=== PATIENT | male | born 1980 | race Caucasian/White ===

== ENCOUNTER 2016-06-05 21:04 | Emergency (ER) | payer SELFPAY ==
[~2016-06-05] VITALS: Ht 185.4 cm; Wt 100.0 kg
[2016-06-05 21:05] VITALS: BP 131/79; PULSE 75; RESP 18; TEMP 97.8; O2SAT 96
--- NOTE | 2016-06-05 21:35 | PD ---
HPI Chief Complaint: Injury Time Seen by Provider: 21:32 Travel History International Travel<30 days: No Contact w/Intl Traveler<30days: No Traveled to known affect area: No History of Present Illness HPI Patient comes in for evaluation of right shoulder pain that began at 1630 today. Patient states he was running track trying to catch up with a group of friends when he tripped over a tree root landing on his right shoulder causing pain. It is a throbbing like in nature with palpation or movement of his right shoulder. Pain improves with not moving his right shoulder. He states he took some ibuprofen prior coming to the emergency department with minimal relief of symptoms. Denies hitting his head, loss consciousness, numbness or tingling anywhere, neck pain, or shortness of breath. Denies any radiation of pain. [facility] Past Medical History Medical History: Denies Significant Hx Social History Alcohol Use: Yes Tobacco Use: No Substance Use: No Allergies-Medications (Allergen,Severity, Reaction): Coded Allergies: Amoxicillin (Verified Allergy, Unknown, 06/05/16) Penicillin (Verified Allergy, Unknown, 06/05/16) Shellfish (Verified Allergy, Unknown, 06/05/16) Reported Meds & Prescriptions Reported Meds & Active Scripts Active Naprosyn (Naproxen) 500 Mg Tab 500 Mg PO Q12HR PRN Flexeril (Cyclobenzaprine HCl) 10 Mg Tab 10 Mg PO Q8HR PRN Review of Systems Except as stated in HPI: all other systems reviewed are Neg Physical Exam Narrative GENERAL: Well-developed, overly nourished, in no acute distress, and non-ill appearing. SKIN: Warm and dry. HEAD: Atraumatic. Normocephalic. EYES: Pupils equal and round. EOMI. No scleral icterus. No injection or drainage. ENT: No nasal bleeding or discharge. Mucous membranes pink and moist. NECK: Trachea midline. Supple. No nuclear rigidity. CARDIOVASCULAR: Radial pulses 2+, tach, and equal bilaterally. Capillary refill less than 2 seconds. RESPIRATORY: No accessory muscle use. No respiratory distress. MUSCULOSKELETAL: No obvious deformities. No clubbing. No cyanosis. No edema. Decreased range of motion right shoulder secondary to pain. Shoulder:FROM equal BL with passive flexion, extension, Abduction, Adduction, internal/external rotation, and pronation/supination. Sensation equal BL deltoid muscles. Pulses equal BL distal to injury. Capillary refill less than 2 seconds distal to injury and equal BL. FROM distal to injury and equal BL. Strength distal to injury equal BL. NV intact distal to injury equal BL. Flexion and extension of thumb equal BL. Equal strength and movement with abduction/adductions of BL fingers. 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 Patient reports tenderness palpation over right anterior shoulder. NEUROLOGICAL: Awake and alert. No obvious cranial nerve deficits. Motor grossly within normal limits. Normal speech. PSYCHIATRIC: Appropriate mood and affect; insight and judgment normal. Data Data Last Documented VS Vital Signs Date Time Temp Pulse Resp B/P Pulse Ox O2 Delivery O2 Flow Rate FiO2 06/05/16 21:05 97.8 75 18 131/79 96 Room Air Orders Shoulder, Complete (>2vws) (06/05/16 ) Ice/Cold Pack (06/05/16 21:30) Splint Or Brace Apply/Monitor (06/05/16 21:30) Cyclobenzaprine (Flexeril) (06/05/16 21:45) Sling Cradle Arm (06/05/16 ) MDM Medical Decision Making Medical Screen Exam Complete: Yes Emergency Medical Condition: Yes Differential Diagnosis Fracture, sprain, contusion, dislocation, other Narrative Course The patient appears to have suffered a contusion of the extremity. There is no clinical evidence to suspect bony injury by exam. Radiographic examination revealed no fracture seen at this time. The patient has full range of motion on active and passive motions. There is no significant edema. There is no proximal or distal joint effusion. The distal extremity appears neurovascularly intact, without evidence of neurovascular injury nor compartment syndrome. Tendon exam also was intact. The patient was discharged on pain medication instructions and given warnings for vascular compromise. The patient is to follow up with their regular physician or Orthopedics. The patient agrees with plan. Patient in no obvious distress upon re-evaluation. All pertinent Radiology result(s) discussed with patient/family. Patient was asked if they wanted to speak to my attending, which the patient did not wish to do at this time. Any questions/concerns in reference to patient diagnosis/condition discussed and clarified prior to patient's discharge. Reinforced sheer importance of close follow up with patient's primary physician or primary care clinic. Instructed patient to return to ED immediately, if symptoms return/worsen. Pt showed understanding of above instructions. Further instructions and recommendations were detailed in discharge paperwork. Pt ambulated without difficulty out of ED at discharge. Diagnosis Primary Impression: Contusion of right shoulder, initial encounter Referrals: Dawit Patel MD Patient Instructions: Contusion in Adults (ED), General Instructions, How to Use a Sling (GEN) Departure Forms: Work Release Enter return to work date: Jun 08, 2016 Additional Instructions: Follow-up with your primary care physician and/or the patient 3-5 days for reevaluation. Take all medication as prescribed. Return to the emergency department if symptoms get worse. Med/Other Pt SpecificInfo: Prescription(s) given Scripts Naproxen (Naprosyn)500 Mg [id number] Mg PO Q12HR PRN (PAIN SCALE 1 TO 10) #14 TAB Ref 0 Prov:Cr Caraballo MD 06/05/16 Cyclobenzaprine (Flexeril)10 Mg Tab10 Mg PO Q8HR PRN (MUSCLE PAIN) #15 TAB Ref 0 Prov:Cr Caraballo MD 06/05/16 Disposition: 01 DISCHARGE HOME Condition: Stable Krishan Cummins Jun 05, 2016 21:35
[2016-06-05] MEDS ORDERED: CYCLOBENZAPRINE HCL 10 MG TAB PO ONE (21:45)
--- NOTE | 2016-06-05 22:08 | RADRPT ---
EXAM DATE/TIME: 06/05/2016 21:47 [facility] COMPARISON: No previous studies available for comparison. INDICATIONS : Right shoulder pain. Patient tripped and landed on a tree stump. MEDICAL HISTORY : None. SURGICAL HISTORY : None. ENCOUNTER: Initial ACUITY: 1 day PAIN SCORE: 10/10 LOCATION: Right shoulder. FINDINGS: Multiple view examination of the right shoulder demonstrates no evidence of fracture or dislocation. The glenohumeral and acromioclavicular joints are maintained. There is normal range of motion betwe en internal and external rotation. Bony mineralization is normal. CONCLUSION: Normal examination for a patient of this age. Gino Canales MD on June 05, 2016 at 22:06 Board Certified Radiologist. This report was verified electronically.
[2016-06-05] MEDS ORDERED: CYCL1TAB29 PO (22:38)
[2016-06-05] MEDS ORDERED: NAPR500 PO (22:38)
== END 2016-06-05 22:47 | disposition home or self-care (01) ==
LOC: NEPB 21:04
DX: S40.011A Contusion of right shoulder, initial encounter (principal); W18.09XA Striking against other object with subsequent fall, initial encounter; Y93.02 Activity, running; Y92.39 Other specified sports and athletic area as the place of occurrence of the external cause; Y99.8 Other external cause status
CPT/HCPCS: 73030; 99283

== ENCOUNTER 2016-07-25 17:04 | Observation (INO) | payer BC ==
[~2016-07-25 17:04] MED LIST: CYCL1TAB29 PO; NAPR500 PO
[2016-07-25 17:05] VITALS: BP 156/87; PULSE 77; RESP 16; TEMP 98.2; O2SAT 100
--- NOTE | 2016-07-25 17:18 | PD ---
HPI Chief Complaint: Chest Pain Time Seen by Provider: 17:14 Travel History International Travel<30 days: No Contact w/Intl Traveler<30days: No Traveled to known affect area: No History of Present Illness HPI 36-year-old male came to the emergency room with history of chest pain on and off since yesterday. Patient says that the pain feels like a pressure in the middle of his chest and radiates down his left arm. No aggravating or relieving factors identified. Currently he says his pain is 4-5 out of 10. He' s never had this kind of pain in the past. Patient currently is not a smoker. He has past history of heavy cocaine abuse and other illicit drug abuse. Currently he is not doing any drugs. Vital signs were otherwise stable. No known family history of coronary artery disease. No other associated symptoms like syncope, nausea, diaphoresis PFSH Past Medical History Narrative Medical List of his past medical, surgical, social and family history as reviewed from the nursing note. Medical History: Denies Significant Hx Past Surgical History Surgical History: No Previous Surgery Social History Alcohol Use: Yes Tobacco Use: No Substance Use: No Allergies-Medications (Allergen,Severity, Reaction): Coded Allergies: Amoxicillin (Verified Allergy, Unknown, 06/05/16) Penicillin (Verified Allergy, Unknown, 06/05/16) Shellfish (Verified Allergy, Unknown, 06/05/16) Comments List of his allergies reviewed from the nursing note. Reported Meds & Prescriptions Reported Meds & Active Scripts Active Narrative Medication List of his home medications reviewed from the nursing note. Review of Systems Except as stated in HPI: all other systems reviewed are Neg Physical Exam Narrative GENERAL: Awake, alert, anxious, mild distress SKIN: Focused skin assessment warm/dry. HEAD: Atraumatic. Normocephalic. EYES: Pupils equal and round. No scleral icterus. No injection or drainage. ENT: No nasal bleeding or discharge. Mucous membranes pink and moist. NECK: Trachea midline. No JVD. CARDIOVASCULAR: Regular rate and rhythm. No murmur appreciated. RESPIRATORY: No accessory muscle use. Clear to auscultation. Breath sounds equal bilaterally. GASTROINTESTINAL: Abdomen soft, non-tender, nondistended. Hepatic and splenic margins not palpable. MUSCULOSKELETAL: No obvious deformities. No clubbing. No cyanosis. No edema. NEUROLOGICAL: Awake and alert. No obvious cranial nerve deficits. Motor grossly within normal limits. Normal speech. PSYCHIATRIC: Appropriate mood and affect; insight and judgment normal. Data Data Last Documented VS Vital Signs Date Time Temp Pulse Resp B/P Pulse Ox O2 Delivery O2 Flow Rate FiO2 07/25/16 17:05 98.2 77 16 156/87 100 Orders Electrocardiogram (07/25/16 ) Basic Metabolic Panel (Bmp) (07/25/16 17:25) Ckmb (Isoenzyme) Profile (07/25/16 17:25) Complete Blood Count With Diff (07/25/16:25) Magnesium (Mg) (07/25/16:25) Prothrombin Time / Inr (Pt) (07/25/16:25) Act Partial Throm Time (Ptt) (07/25/16:25) Troponin I (07/25/16:25) Chest, Single Ap (07/25/16:25) Ecg Monitoring (07/25/16 17:25) Bilateral Bp Monitoring (07/25/16:25) Iv Access Insert/Monitor (07/25/16:) Oximetry (07/25/16:25) Oxygen Administration (07/25/16:25) Sodium Chloride 0.9% Flush (Ns Flush) (07/25/16 17:30) Aspirin Chew (Aspirin Chew) (07/25/16 17:45) D-Dimer (07/25/16 17:43) CKMB (07/25/16 17:30) CKMB% (07/25/16 17:30) Admit Order (Ed Use Only) (07/25/16 18:37) Place In Observation (07/25/16 18:37) Activity Bed Rest With Brp (07/25/16 18:37) Vital Signs (Adult) Q4H (07/25/16 18:37) Cardiac Rhythm .As Directed (07/25/16 18:37) Notify Dr: Other .PRN (07/25/16 18:37) Notify Parameters (07/25/16 18:37) Resp Oxygen Nasal Cannula (07/25/16 ) Diet Heart Healthy (07/25/16 Dinner) Ckmb (Isoenzyme) Profile (07/25/16 18:37) Ckmb (Isoenzyme) Profile (07/25/16 21:37) Troponin I (07/25/16 18:37) Troponin I (07/25/16 21:37) Electrocardiogram (07/25/16 21:37) ^ Obtain (07/25/16 18:37) Sodium Chloride 0.9% Flush (Ns Flush) (07/25/16 18:45) Sodium Chloride 0.9% Flush (Ns Flush) (07/25/16 21:00) Acetaminophen (Tylenol) (07/25/16 18:45) Ondansetron Inj (Zofran Inj) (07/25/16 18:45) Nitroglycerin Sl (Nitrostat Sl) (07/25/16 18:45) Automotive Service Cashier / Telemetry RD.Q8H (07/25/16 18:37) CKMB (07/25/16 20:29) CKMB% (07/25/16 20:29) CKMB (07/25/16 23:35) CKMB% (07/25/16 23:35) Labs Laboratory Tests Test 07/25/16 17:30 White Blood Count 8.0 TH/MM3 Red Blood Count 4.71 MIL/MM3 Hemoglobin 13.9 GM/DL Hematocrit 40.5 % Mean Corpuscular Volume 86.0 FL Mean Corpuscular Hemoglobin 29.5 PG Mean Corpuscular Hemoglobin 34.3 % Concent Red Cell Distribution Width 12.4 % Platelet Count 284 TH/MM3 Mean Platelet Volume 8.2 FL Neutrophils (%) (Auto) 62.8 % Lymphocytes (%) (Auto) 29.1 % Monocytes (%) (Auto) 6.8 % Eosinophils (%) (Auto) 0.5 % Basophils (%) (Auto) 0.8 % Neutrophils # (Auto) 5.0 TH/MM3 Lymphocytes # (Auto) 2.3 TH/MM3 Monocytes # (Auto) 0.5 TH/MM3 Eosinophils # (Auto) 0.0 TH/MM3 Basophils # (Auto) 0.1 TH/MM3 CBC Comment DIFF FINAL Differential Comment Prothrombin Time 10.2 SEC Prothromb Time International 0.9 RATIO Ratio Activated Partial 26.7 SEC Thromboplast Time D-Dimer Quantitative (PE/DVT) 0.25 MG/L FEU Sodium Level 139 MEQ/L Potassium Level 3.6 MEQ/L Chloride Level 104 MEQ/L Carbon Dioxide Level 28.5 MEQ/L Anion Gap 7 MEQ/L Blood Urea Nitrogen 14 MG/DL Creatinine 1.45 MG/DL Estimat Glomerular Filtration 55 ML/MIN Rate Random Glucose 90 MG/DL Calcium Level 9.7 MG/DL Magnesium Level 2.2 MG/DL Total Creatine Kinase 242 U/L Creatine Kinase MB 1.5 NG/ML Troponin I LESS THAN 0.02 NG/ML MDM Medical Decision Making Medical Screen Exam Complete: Yes Emergency Medical Condition: Yes Medical Record Reviewed: Yes Interpretation(s) Twelve-lead EKG was reviewed by me. Normal sinus rhythm, normal axis, nonspecific ST-T wave changes. Heart rate of 68 bpm. Differential Diagnosis Chest pain, ACS, non-STEMI Narrative Course 6:40 PM the test results were back including d-dimer and they're negative. However I will admit the patient for chest pain rule out ACS given the fact that the pain isn't typical distribution for ACS and patient has some past risk factors which includes heavy use of cocaine. I've discussed this with the patient and he understands and has agreed to stay overnight. Procedures EKG Prior to Arrival: No Diagnosis Primary Impression: Chest pain Qualified Code: R07.9 - Chest pain, unspecified type Admitting Information Admitting Physician Requests: Observation Scripts Naproxen 500 Mg [id number] Mg PO BID 5 Days Ref 0 Prov:Ashlyn Encarnacion 07/26/16 Nataliia Juarez MD July 25, 2016 17:18
[2016-07-25] MEDS ORDERED: SODIUM CHLORIDE 0.9% FLUSH 10 ML FLUSH IVF PRN (17:30)
[2016-07-25 17:42] LABS: BASOPHIL # 0.1 TH/MM3 (0-0.2); BASOPHIL % 0.8 % (0.0-2.0); EOSINOPHIL % 0.5 % (0.0-4.0); HEMATOCRIT 40.5 % (39.0-51.0); HEMO FLAGS DIFF FINAL; LYMPH % 29.1 % (9.0-44.0); LYMPHOCYTE # 2.3 TH/MM3 (1.0-4.8); MEAN CORPUSCULAR HEMOGLOBIN 29.5 PG (27.0-34.0); MEAN CORPUSCULAR HGB CONC 34.3 % (32.0-36.0); MONO % 6.8 % (0.0-8.0); NEUT % 62.8 % (16.0-70.0); PLATELET COUNT 284 TH/MM3 (150-450); RED BLOOD COUNT 4.71 MIL/MM3 (4.50-5.90); RED CELL DISTRIBUTION WIDTH 12.4 % (11.6-17.2)
[2016-07-25] MEDS ORDERED: ASPIRIN 81 MG CHEW TAB CHEW ONE (17:45)
--- NOTE | 2016-07-25 17:45 | RADRPT ---
EXAM DATE/TIME: 07/25/2016 17:38 [facility] COMPARISON: No previous studies available for comparison. INDICATIONS : Patient states he has been having chest pain intermittently for a couple weeks. MEDICAL HISTORY : None. SURGICAL HISTORY : None. ENCOUNTER: Initial ACUITY: 2 weeks PAIN SCORE: 8/10 LOCATION: Bilateral chest FINDINGS: A single view of the chest demonstrates the lungs to be symmetrically aerated without evidence of mas s, infiltrate or effusion. The cardiomediastinal contours are unremarkable. Nipple rings are noted. Osseous structures are intact. CONCLUSION: No acute disease. Marco Antonio Cason MD FACR on July 25, 2016 at 17:43 Board Certified Radiologist. This report was verified electronically.
[2016-07-25 17:52] LABS: APTT (PATIENT) 26.7 SEC (24.3-30.1); INTERNATIONAL NORMALIZED RATIO 0.9 RATIO; PROTHROMBIN TIME - PATIENT 10.2 SEC (9.8-11.6)
[2016-07-25 18:22] LABS: CREATINE KINASE 242 U/L (39-308)
[2016-07-25 18:23] LABS: ANION GAP 7 MEQ/L (5-15); BICARBONATE 28.5 MEQ/L (21.0-32.0); BLOOD UREA NITROGEN 14 MG/DL (7-18); CHLORIDE 104 MEQ/L (98-107); GLOMERULAR FILTRATION RATE 55 ML/MIN (>89); MAGNESIUM 2.2 MG/DL (1.5-2.5); POTASSIUM 3.6 MEQ/L (3.5-5.1); SODIUM (NA) 139 MEQ/L (136-145)
[2016-07-25 18:34] LABS: CKMB 1.5 NG/ML (0.5-3.6)
[2016-07-25] MEDS ORDERED: SODIUM CHLORIDE 0.9% FLUSH 10 ML FLUSH IV FLUSH PRN (18:45)
[2016-07-25] MEDS ORDERED: NITROGLYCERIN 0.4 MG SL 25 TABS/BTL SL PRN (18:45)
[2016-07-25] MEDS ORDERED: ONDANSETRON HCL 4 MG/2 ML VIAL IV PRN (18:45)
[2016-07-25] MEDS ORDERED: ACETAMINOPHEN 500 MG CPLT PO PRN (18:45)
[2016-07-25] MEDS ORDERED: LORazepam 1 MG TAB PO PRN (19:00)
[2016-07-25 19:33] VITALS: O2SAT 98
[2016-07-25 19:42] LABS: BLOOD, URINE NEG (NEG); GLUCOSE,URINE NEG (NEG); KETONE, URINE NEG (NEG); NITRITE,URINE NEG (NEG); PH, URINE 5.5 (5.0-8.5); URINE COLOR YELLOW (YELLW/STRAW)
[2016-07-25 19:51] LABS: AMPHETAMINE, URINE NEG (NEG); BARBITURATES, URINE NEG (NEG); COCAINE, URINE NEG (NEG); COMMENT (UR) CULT NOT INDICATED; CULTURE IF INDICATED CULT NOT INDICATED
[2016-07-25 20:12] VITALS: BP 150/74
[2016-07-25 20:27] VITALS: BP 131/85; PULSE 73; RESP 21; TEMP 98.5; O2SAT 100
[2016-07-25 20:34] VITALS: PULSE 76
[2016-07-25] MEDS: SODIUM CHLORIDE 0.9% FLUSH 10 ML FLUSH IV FLUSH SCH (21:05)
[2016-07-25 21:11] LABS: CREATINE KINASE 199 U/L (39-308)
[2016-07-25 21:42] LABS: CKMB 1.2 NG/ML (0.5-3.6)
[2016-07-25 23:34] VITALS: BP 135/61; PULSE 66; RESP 20; TEMP 98.5; O2SAT 97
[2016-07-26 00:02] VITALS: PULSE 60
[2016-07-26 00:14] LABS: AST (GOT) 22 U/L (15-37)
[2016-07-26 00:19] LABS: ALKALINE PHOSPHATASE 70 U/L (45-117); ALT (GPT) 35 U/L (12-78); CREATINE KINASE 169 U/L (39-308); INDIRECT BILIRUBIN 0.3 MG/DL (0.0-0.8); TOTAL BILIRUBIN ADULT 0.4 MG/DL (0.2-1.0)
[2016-07-26 00:32] LABS: CKMB 1.2 NG/ML (0.5-3.6)
[2016-07-26 04:03] VITALS: PULSE 66
[2016-07-26 06:09] VITALS: BP 128/73; PULSE 60; RESP 21; TEMP 98; O2SAT 99
[2016-07-26 07:32] VITALS: O2SAT 97
[2016-07-26 07:44] VITALS: BP 135/68; PULSE 80; RESP 20; TEMP 97.9; O2SAT 98
[2016-07-26 08:00] VITALS: PULSE 61; PULSE 66
[2016-07-26] MEDS ORDERED: KETOROLAC TROMETHAMINE 30 MG/ML (IVP) VIAL IV PUSH ONE (08:15)
--- NOTE | 2016-07-26 08:53 | HHI.HP ---
HPI Primary Care Physician No Primary Care Physician Chief Complaint Chest pain History of Present Illness 36-year-old male with no significant medical history presents to emergency room for further onset of chest pain. Onset 3 weeks ago. Location substernal and left anterior chest. Characterized as "someone sitting on my chest.". Occasionally, it hurts to breathe. No associated symptoms shortness of breath, nausea, vomiting, or diaphoresis. No known trauma to area. Describes chest pain as intermittent most days over the past 3 weeks in duration last all day. No known precipitating or relieving factors. He has never had chest pain in the past. Review of Systems General: No fatigue,weakness, fever, chills, recent illness, recent travel, or change in appetite. Has been in his general state of health. 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 Does not develop any exertional chest pain, however states keeps chest pressure all day on most days. HEENT: No GARCIA, no vision changes, no nasal congestion or drainage, no dysphasia CV: As stated above. Complains of current chest pressure left anterior chest constant since awakening this a.m. Pain level 3/10. No palpitations or dizziness. RESP: No SOB, cough, wheeze, or recent URI. No personal history of DVTs or PEs. GI: No nausea, vomiting, bowel changes, diarrhea, constipation, or pain. : No dysuria, urgency, frequency EXT: No lower leg edema, no paraesthesias MS: No discomfort or change in ROM NEURO: No change in memory, dizziness, difficulty with balance, LOC, motor/ sensory deficits PSYCH: No anxiety or depression SKIN: No rashes, no concerning lesions Past Family Social History Allergies: Coded Allergies: Amoxicillin (Verified Allergy, Unknown, 06/05/16) Penicillin (Verified Allergy, Unknown, 06/05/16) Shellfish (Verified Allergy, Unknown, 06/05/16) Past Medical History GERD Past Surgical History None Reported Medications Active No Active Prescriptions or Reported Medications Occasionally will use [id number] current medication. Active Ordered Medications Current Medications Medications (Trade) Dose Ordered Sig/Chelsy Route Start Time Stop Time Status Last Admin (Tylenol) 500 mg Q4H PRN PO 07/25/16 18:45 (Zofran Inj) 4 mg Q6H PRN IV 07/25/16 18:45 (Nitrostat Sl) 0.4 mg Q5M PRN SL 07/25/16 18:45 (Ativan) 1 mg Q6H PRN PO 07/25/16 19:00 (Aspirin) 325 mg DAILY PO 07/26/16 09:00 Family History Noncontributory for early onset cardiovascular disease. Social History No known diabetes, hyper tension, or hyperlipidemia. Lifelong nonsmoker. Remote use of cocaine abuse. Denies any current drug abuse. Drinks alcohol occasionally. 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 Past cardiac testing No formal cardiac testing. Physical Exam Vital Signs Vital Signs Date Time Temp Pulse Resp B/P Pulse Ox O2 Delivery O2 Flow Rate FiO2 07/26/16 07:44 97.9 80 20 135/68 98 07/26/16 07:32 97 21 07/26/16 06:09 98.0 60 21 128/73 99 07/26/16 04:03 66 07/26/16 00:02 60 07/25/16 23:34 98.5 66 20 135/61 97 07/25/16 20:34 76 07/25/16 20:27 98.5 73 21 131/85 100 07/25/16 20:12 74 16 150/74 100 07/25/16 19:33 98 07/25/16 17:05 98.2 77 16 156/87 100 Physical Exam GENERAL: Alert WN, WD, NAD, male. HEAD: NC, AT EYES: Sclera clear, conjunctiva without injection, pupils equal and round NECK: Supple, no masses, trachea midline CV: RRR, without murmur, rub, gallop, no JVD, S1-S2 no S3-S4. RESP: Clear lungs throughout bilateral, no crackles, wheeze, rhonchi, symmetrical chest rise, nonlabored, able to speak in full sentences ABD: Soft, NT, ND, no masses, positive bowel tones EXT: Pulses +24, no dependent edema MS: Normal tone 4 extremities, nontender, no obvious deformities, full range of motion NEURO: CN II through CN XII grossly intact, motor strength 5/5, gait WNL PSYCH: A+O 3, flat affect, appropriate speech, appropriate mood and affect, insight and judgment SKIN: Normal turgor, normal texture, multiple tattoos and piercings Laboratory Laboratory Tests Test 5/14/17 07/25/16 07/25/16 07/25/16 17:30 19:28 20:29 23:35 White Blood Count 8.0 Red Blood Count 4.71 Hemoglobin 13.9 Hematocrit 40.5 Mean Corpuscular Volume 86.0 Mean Corpuscular Hemoglobin 29.5 Mean Corpuscular Hemoglobin 34.3 Concent Red Cell Distribution Width 12.4 Platelet Count 284 Mean Platelet Volume 8.2 Neutrophils (%) (Auto) 62.8 Lymphocytes (%) (Auto) 29.1 Monocytes (%) (Auto) 6.8 Eosinophils (%) (Auto) 0.5 Basophils (%) (Auto) 0.8 Neutrophils # (Auto) 5.0 Lymphocytes # (Auto) 2.3 Monocytes # (Auto) 0.5 Eosinophils # (Auto) 0.0 Basophils # (Auto) 0.1 CBC Comment DIFF FINAL Differential Comment Prothrombin Time 10.2 Prothromb Time International 0.9 Ratio Activated Partial 26.7 Thromboplast Time D-Dimer Quantitative (PE/DVT) 0.25 Sodium Level 139 Potassium Level 3.6 Chloride Level 104 Carbon Dioxide Level 28.5 Anion Gap 7 Blood Urea Nitrogen 14 Creatinine 1.45 Estimat Glomerular Filtration 55 Rate Random Glucose 90 Calcium Level 9.7 Magnesium Level 2.2 Total Creatine Kinase 242 199 169 Creatine Kinase MB 1.5 1.2 1.2 Troponin I LESS THAN 0.02 LESS THAN 0.02 LESS THAN 0.02 Urine Color YELLOW Urine Turbidity CLEAR Urine pH 5.5 Urine Specific [place] 1.021 Urine Protein NEG Urine Glucose (UA) NEG Urine Ketones NEG Urine Occult Blood NEG Urine Nitrite NEG Urine Bilirubin NEG Urine Urobilinogen LESS THAN 2.0 Urine Leukocyte Esterase NEG Urine RBC LESS THAN 1 Urine WBC 1 Microscopic Urinalysis Comment CULT NOT INDICATED Urine Opiates Screen NEG Urine Barbiturates Screen NEG Urine Amphetamines Screen NEG Urine Benzodiazepines Screen NEG Urine Cocaine Screen NEG Urine Cannabinoids Screen NEG Total Bilirubin 0.4 Direct Bilirubin 0.1 Indirect Bilirubin 0.3 Aspartate Amino Transf 22 (AST/SGOT) Alanine Aminotransferase 35 (ALT/SGPT) Alkaline Phosphatase 70 Total Protein 6.3 Albumin 3.5 Result Diagram: 07/25/16172907/25/16 173 Imaging Last Impressions Chest X-Ray 07/25/16 1725 Signed Impressions: Service Date/Time: Monday, July 25, 2016 17:38 - CONCLUSION: No acute disease. Marco Antonio Cason MD FACR Course EKGs 3 EKG-normal sinus rhythm, normal axis, no ST or T-segment changes. Assessment and Plan Assessment and Plan #1 Chest painadmitted to chest pain center. Ruled out with 3 sets of EKGs, cardiac enzymes, monitor overnight. Was seen and evaluated by Dr. Woodrow Munguia. Completing exercise stress test which was unremarkable. Chest discomfort most likely musculoskeletal in nature. Will discharge this afternoon. #2 Musculoskeletal painToradol 30 mg IV 1 dose now. Naproxen 500 mg twice a day 5 days, followed by naproxen over the counter strength, 1 tablet twice a day 5 days. Instructed to take medication with food and may use heaet to affected area. Follow-up with PCP if pain persists. Established with PCP. Ashlyn Encarnacion July 26, 2016 08:53
[2016-07-26] MEDS ORDERED: ASPIRIN 325 MG TAB PO SCH (09:00)
[2016-07-26] MEDS ORDERED: NAPR500T PO (10:30)
--- NOTE | 2016-07-26 10:31 | HHI.DCPOC ---
Discharge Care Plan Diagnosis: (1) Musculoskeletal chest pain Goals to Promote Your Health * To prevent worsening of your condition and complications * To maintain your health at the optimal level Directions to Meet Your Goals Take your medications as prescribed Follow your dietary instruction Follow activity as directed Keep your appointments as scheduled Take your immunizations and boosters as scheduled If your symptoms worsen call your PCP, if no PCP go to Urgent Care Center or Emergency Room Smoking is Dangerous to Your Health. Avoid second hand smoke Call the 24-hour hour crisis hotline for domestic abuse at Ashlyn Encarnacion July 26, 2016 10:31
[2016-07-26] MEDS: SODIUM CHLORIDE 0.9% FLUSH 10 ML FLUSH IV FLUSH SCH (10:34)
--- NOTE | 2016-07-26 13:48 | EKG ---
Date Performed: 07/25/2016 Time Performed: 23:31:01 PTAGE: 36 years EKG: Sinus rhythm WITH SINUS ARRHYTHMIA NORMAL ECG PREVIOUS TRACING : 07/25/2016 20.55 Since previous tracing, no significant change noted DOCTOR: Woodrow Munguia Interpretating Date/Time 07/26/2016 13:47:24
--- NOTE | 2016-07-26 13:49 | EKG ---
Date Performed: 07/25/2016 Time Performed: 20:55:30 PTAGE: 36 years EKG: Sinus rhythm NORMAL ECG PREVIOUS TRACING : 07/25/2016 17.16 Since previous tracing, no significant change noted DOCTOR: Woodrow Munguia Interpretating Date/Time 07/26/2016 13:47:44
--- NOTE | 2016-07-26 13:50 | EKG ---
Date Performed: 07/25/2016 Time Performed: 17:16:53 PTAGE: 36 years EKG: Sinus rhythm NORMAL ECG NO PREVIOUS TRACING DOCTOR: Woodrow Munguia Interpretating Date/Time 07/26/2016 13:49:01
--- NOTE | 2016-07-26 13:51 | TR ---
Date Performed: 07/26/2016 Time Performed: 09:14:49 DOCTOR: Woodrow Munguia DRUG LIST: CLINICAL HISTORY: REASON FOR TEST: REASON FOR ENDING: OBSERVATION: CONCLUSION: Rio protocol completed. Stopped sec to exceeding target heart rate and leg fatigue . Maximum RX=071 Target HR Achieved=86.0% Maximum JP=800/82 Total Exercise Time=9:22. No ectopy, no s ob. No st t seg changes to sugg ischemia. Normal bp response. Recovery quick and unremarkable. COMMENTS: Patient exercised using the [place] protocol. No electrocardiographic changes were seen to suggest ischemia. Hemodynamic response to exercise was normal. No significant arrhythmia was prese nt.
== END 2016-07-26 13:37 | disposition home or self-care (01) ==
LOC: NEPE 17:04 → NEDA 18:40 → NEPGCP 20:17
PROVIDERS: ADMIT Family Medicine; ATTEND Family Medicine
DX: R07.9 Chest pain, unspecified (principal); M79.1 Myalgia; K21.9 Gastro-esophageal reflux disease without esophagitis; Z88.1 Allergy status to other antibiotic agents; Z88.0 Allergy status to penicillin; Z91.013 Allergy to seafood
CPT/HCPCS: 71010; 80048; 80076; 80307; 81001; 82550; 82552; 83735; 84484; 85025; 85379; 85610; 85730; 93005; 93017; 99285; G0378; J1885

== ENCOUNTER 2016-08-23 08:46 | Emergency (ER) | payer BC ==
[~2016-08-23] VITALS: Ht 185.4 cm; Wt 99.0 kg
[~2016-08-23 08:46] MED LIST changes: -CYCL1TAB29 PO; -NAPR500 PO; +NAPR500T PO
[2016-08-23 08:48] VITALS: BP 136/79; PULSE 72; RESP 20; TEMP 98.5; O2SAT 99
[2016-08-23] MEDS ORDERED: PREV15CA (08:57)
--- NOTE | 2016-08-23 09:04 | PD ---
HPI Chief Complaint: Complaint Time Seen by Provider: 08:59 Travel History International Travel<30 days: No Contact w/Intl Traveler<30days: No Traveled to known affect area: No History of Present Illness HPI 36-year-old male presents the emergency Department with exposure to STD. Patient states he was with his girlfriend who he had unprotected sex with when she was diagnosed Trichomonas. He is requesting treatment for this although he has no symptoms currently. Patient denies any other specific exposure history. He is allergic to amoxicillin, penicillin, and shellfish. PFSH Past Medical History Heart Rhythm Problems: No Cardiac Catheterization: No Cardiovascular Problems: No Diabetes: No Past Surgical History Coronary Artery Bypass Graft: No Social History Alcohol Use: Yes Tobacco Use: No Substance Use: No Allergies-Medications (Allergen,Severity, Reaction): Coded Allergies: Amoxicillin (Verified Allergy, Unknown, 08/23/16) Penicillin (Verified Allergy, Unknown, 08/23/16) Shellfish (Verified Allergy, Unknown, 08/23/16) Reported Meds & Prescriptions Reported Meds & Active Scripts Active Reported Prevacid 24Hr (Lansoprazole) 15 Mg Cap Review of Systems Except as stated in HPI: all other systems reviewed are Neg General / Constitutional: No: Fever Eyes: No: Visual changes HENT: No: Headaches Cardiovascular: No: Chest Pain or Discomfort Respiratory: No: Shortness of Breath Gastrointestinal: No: Abdominal Pain Genitourinary: No: Dysuria Musculoskeletal: No: Pain Skin: No Rash Neurologic: No: Weakness Psychiatric: No: Depression Endocrine: No: Polydipsia Hematologic/Lymphatic: No: Easy Bruising Physical Exam Narrative GENERAL: The patient is in no acute distress. SKIN: Warm and dry. HEAD: Atraumatic. Normocephalic. EYES: Pupils equal and round. No scleral icterus. No injection or drainage. ENT: No nasal bleeding or discharge. Mucous membranes pink and moist. NECK: Trachea midline. Supple and nontender. CARDIOVASCULAR: Regular rate and rhythm. RESPIRATORY: No accessory muscle use. Clear to auscultation. Breath sounds equal bilaterally. GASTROINTESTINAL: Abdomen soft, non-tender, nondistended. Hepatic and splenic margins not palpable. No CVA tenderness. MUSCULOSKELETAL: Extremities without clubbing, cyanosis, or edema. No obvious deformities. NEUROLOGICAL: Awake and alert. No obvious cranial nerve deficits. Motor grossly within normal limits. Five out of 5 muscle strength in the arms and legs. Normal speech. PSYCHIATRIC: Appropriate mood and affect; insight and judgment normal. Data Data Last Documented VS Vital Signs Date Time Temp Pulse Resp B/P Pulse Ox O2 Delivery O2 Flow Rate FiO2 08/23/16 08:48 98.5 72 20 136/79 99 Room Air MDM Medical Decision Making Medical Screen Exam Complete: Yes Emergency Medical Condition: Yes Differential Diagnosis Exposure to STD. Exposure to Trichomonas. Unprotected sex. Narrative Course Patient will be treated for Trichomonas with a one-time dose of metronidazole 500 mg 4 tablets times once. Discussed the need for protection. Patient denies sexual intercourse for the next 7 days. Patient follow with the health department or primary care physician as needed. Diagnosis Primary Impression: Exposure to STD Patient Instructions: General Instructions, Sexually Transmitted Diseases (ED) Additional Instructions: Patient will be treated for Trichomonas with a one-time dose of metronidazole 500 mg 4 tablets times once. Discussed the need for protection. Patient denies sexual intercourse for the next 7 days. Patient follow with the health department or primary care physician as needed. Med/Other Pt SpecificInfo: Prescription(s) given Disposition: 01 DISCHARGE HOME Condition: Stable Chester Urbina Aug 23, 2016 09:04
[2016-08-23] MEDS ORDERED: METR500T10 PO (09:05)
== END 2016-08-23 09:17 | disposition home or self-care (01) ==
LOC: NEPK 08:46
DX: Z20.2 Contact with and (suspected) exposure to infections with a predominantly sexual mode of transmission (principal)
CPT/HCPCS: 99283

== ENCOUNTER 2016-12-09 12:28 | Emergency (ER) | payer SELFPAY ==
[~2016-12-09] VITALS: Ht 188 cm; Wt 100.0 kg
[~2016-12-09 12:28] MED LIST changes: +METR500T10 PO; -NAPR500T PO; +PREV15CA
[2016-12-09 12:29] VITALS: BP 129/72; PULSE 82; RESP 20; TEMP 98.4; O2SAT 98
[2016-12-09] MEDS ORDERED: BENZ100 PO (13:25)
[2016-12-09] MEDS ORDERED: PRED20 PO (13:25)
[2016-12-09] MEDS ORDERED: VENTAER INH (13:25)
--- NOTE | 2016-12-09 13:26 | PD ---
HPI Chief Complaint: Cold / Flu Symptoms Time Seen by Provider: 12:50 Travel History International Travel<30 days: No Contact w/Intl Traveler<30days: No Traveled to known affect area: No History of Present Illness HPI 36-year-old male presents emergency department for evaluation of sore throat, cough, nasal congestion, wheezing times one day. Patient denies sick contacts. No aggravating or alleviating factors. Patient denies headache, visual changes, chest pain, shortness of breath, abdominal pain. Symptom severity mild /moderate. PFSH Past Medical History Medical History: Denies Significant Hx Heart Rhythm Problems: No Cardiac Catheterization: No Cardiovascular Problems: No Diabetes: No Tetanus Vaccination: < 5 Years Past Surgical History Surgical History: No Previous Surgery Coronary Artery Bypass Graft: No Social History Alcohol Use: Yes (SOMETIMES) Tobacco Use: No Substance Use: No Allergies-Medications (Allergen,Severity, Reaction): Coded Allergies: amoxicillin (Unverified Allergy, Unknown, 12/09/16) penicillin G (Unverified Allergy, Unknown, 12/09/16) shellfish derived (Unverified Allergy, Unknown, 12/09/16) Reported Meds & Prescriptions Reported Meds & Active Scripts Active Review of Systems Except as stated in HPI: all other systems reviewed are Neg General / Constitutional: No: Fever HENT: Positive: Congestion Respiratory: Positive: Cough, Wheezing Physical Exam Narrative GENERAL: Well-nourished, well-developed patient. SKIN: Focused skin assessment warm/dry. HEAD: Normocephalic. EYES: No scleral icterus. No injection or drainage. THROAT: Mild pharyngeal injection, no exudates, or tonsillar hypertrophy. Airway is patent. NECK: Supple, trachea midline. No JVD or lymphadenopathy. CARDIOVASCULAR: Regular rate and rhythm without murmurs, gallops, or rubs. RESPIRATORY: Breath sounds equal bilaterally. No accessory muscle use. Mild expiratory wheeze which clears with cough. No rales or rhonchi. GASTROINTESTINAL: Abdomen soft, non-tender, nondistended. MUSCULOSKELETAL: No cyanosis, or edema. BACK: Nontender without obvious deformity. No CVA tenderness. Data Data Last Documented VS Vital Signs Date Time Temp Pulse Resp B/P (MAP) Pulse Ox O2 Delivery O2 Flow Rate FiO2 12/09/16 12:29 98.4 82 20 129/72 (91) 98 Room Air MDM Medical Decision Making Medical Screen Exam Complete: Yes Emergency Medical Condition: Yes Interpretation(s) Afebrile. No tachycardia. Pulse ox 98% on room air Differential Diagnosis Bronchitis, reactive airway, viral URI Narrative Course 36-year-old male with chief complaint of URI-like symptoms. Patient is reporting he had slight wheezing last night. He denies history of asthma although reports she's used of bronchodilator with upper respiratory infections in the past. Patient's vital signs are stable. He is well-appearing. He has mild expiratory wheeze which clears with cough. Patient will be treated with steroids, bronchodilator, cough medicine. Diagnosis Primary Impression: URI (upper respiratory infection) Qualified Codes: J06.9 - Acute upper respiratory infection, unspecified; B97.89 - Other viral agents as the cause of diseases classified elsewhere Referrals: [facility] Additional Instructions: Take medications as prescribed. Use albuterol inhaler as directed. Stay well hydrated by drinking plenty of fluids. Rest. Follow-up with her primary doctor. Scripts Prednisone (Prednisone) 20 Mg Tab 20 MG PO DAILY for 5 Days, #5 TAB 0 Refills Prov: Sarai Almaraz 12/09/16 Albuterol 18 GM Inh (Ventolin Hfa 18 GM Inh) 90 Mcg/Act Aer 1 PUFF INH Q4H Y for SHORTNESS OF BREATH, #1 INHALER 0 Refills Prov: Sarai Almaraz 12/09/16 Benzonatate (Tessalon Perles) 100 Mg Cap 200 MG PO TID Y for COUGH for 5 Days, CAP 0 Refills Prov: Sarai Almaraz 12/09/16 Disposition: 01 DISCHARGE HOME Condition: Stable Sarai Almaraz Dec 09, 2016 13:26
== END 2016-12-09 13:34 | disposition home or self-care (01) ==
LOC: NEPK 12:28
DX: J06.9 Acute upper respiratory infection, unspecified (principal); R06.2 Wheezing
CPT/HCPCS: 99284

== ENCOUNTER 2016-12-26 20:52 | Emergency (ER) | payer SELFPAY ==
[~2016-12-26] VITALS: Ht 185.4 cm; Wt 100.0 kg
[~2016-12-26 20:52] MED LIST changes: +BENZ100 PO; -METR500T10 PO; +PRED20 PO; -PREV15CA; +VENTAER INH
[2016-12-26 20:53] VITALS: BP 151/76; PULSE 76; RESP 16; TEMP 98.1; O2SAT 96
[2016-12-26] MEDS ORDERED: ACETAMINOPHEN/HYDROcodone 325 MG/10 MG TAB PO ONE (23:00)
--- NOTE | 2016-12-26 23:00 | PD ---
HPI Chief Complaint: Musculoskeletal Complaint Time Seen by Provider: 22:54 Travel History International Travel<30 days: No Contact w/Intl Traveler<30days: No Traveled to known affect area: No History of Present Illness HPI Patient is a 36-year-old male presents emergency department for evaluation of right elbow pain after a fall. Patient states he was getting ready for work tonight and his pitbull hidden behind the knees and he fell backwards onto his right elbow. He isolates the pain to the proximal ulna. Denies any injury to head neck back lower extremities. Patient states the pain is cramping, constant , severe, isolated to the right elbow without radiation. PFSH Past Medical History Medical History: Denies Significant Hx Heart Rhythm Problems: No Cardiac Catheterization: No Cardiovascular Problems: No Diabetes: No Past Surgical History Surgical History: No Previous Surgery Coronary Artery Bypass Graft: No Social History Alcohol Use: Yes (SOMETIMES) Tobacco Use: No Substance Use: No Allergies-Medications (Allergen,Severity, Reaction): Coded Allergies: amoxicillin (Unverified Allergy, Unknown, 12/26/16) penicillin G (Unverified Allergy, Unknown, 12/26/16) shellfish derived (Unverified Allergy, Unknown, 12/26/16) Reported Meds & Prescriptions Reported Meds & Active Scripts Active Ventolin Hfa 18 GM Inh (Albuterol Sulfate) 90 Mcg/Act Aer 1 Puff INH Q4H PRN Review of Systems Except as stated in HPI: all other systems reviewed are Neg Physical Exam Narrative GENERAL: Well-nourished, well-developed patient. SKIN: Focused skin assessment warm/dry. HEAD: Normocephalic. EYES: No scleral icterus. No injection or drainage. NECK: Supple, trachea midline. No JVD or lymphadenopathy. CARDIOVASCULAR: Regular rate and rhythm without murmurs, gallops, or rubs. RESPIRATORY: Breath sounds equal bilaterally. No accessory muscle use. GASTROINTESTINAL: Abdomen soft, non-tender, nondistended. MUSCULOSKELETAL: No cyanosis, or edema. Some minimal swelling about the anterior lateral compartment of the right forearm near the elbow. Minimal bony tenderness of the olecranon process. Full nontender range of motion at the elbow. Wrist normal, shoulders normal, pulse motor and sensory intact distally in all 4 extremities and compartments are soft. Remainder of the muscular skeletal exam is negative in the left upper left lower right lower extremities. No midline CT or L-spine tenderness. BACK: Nontender without obvious deformity. No CVA tenderness. Data Data Last Documented VS Vital Signs Date Time Temp Pulse Resp B/P (MAP) Pulse Ox O2 Delivery O2 Flow Rate FiO2 12/26/16 23:37 12/26/16 20:53 98.1 76 16 96 Room Air Orders Orders Elbow, Complete (4 Vws) (12/26/16 ) Acetamin-Hydrocod 325-10 Mg ([place] 10-32 (12/26/16 23:00) Ed Discharge Order (12/26/16 23:28) MDM Medical Decision Making Medical Screen Exam Complete: Yes Emergency Medical Condition: Yes Differential Diagnosis strain, sprain, fracture, contusion. Narrative Course Patient roomed in emergency department, pain medicine given, x-rays negative. Discussed versus compression elevation. Discussed follow-up the primary care physician and return to ED criteria. He is stable for discharge. Diagnosis Primary Impression: Contusion of elbow, right Qualified Codes: S50.01XA - Contusion of right elbow, initial encounter Patient Instructions: General Instructions, RICE Therapy (GEN) Departure Forms: Tests/Procedures, Work Release Enter return to work date: Dec 28, 2016 Disposition: 01 DISCHARGE HOME Condition: Stable Carlton Quevedo MD Dec 26, 2016 23:00
--- NOTE | 2016-12-26 23:46 | RADRPT ---
EXAM DATE/TIME: 12/26/2016 22:56 [facility] COMPARISON: No previous studies available for comparison. INDICATIONS : Fall right elbow pain. MEDICAL HISTORY : None. SURGICAL HISTORY : None. ENCOUNTER: Initial ACUITY: 1 day PAIN SCORE: 0/10 LOCATION: Right elbow FINDINGS: Multiple view examination of the right elbow demonstrates no soft tissue swelling, joint effusion, or fracture. The osseous structures are in normal alignment. Bony mineralization is normal. CONCLUSION: 1. Negative examination of the elbow. Woodrow Camargo MD on December 26, 2016 at 23:44 Board Certified Radiologist. This report was verified electronically.
== END 2016-12-26 23:42 | disposition home or self-care (01) ==
LOC: NEPD 20:52
DX: S50.01XA Contusion of right elbow, initial encounter (principal); W18.09XA Striking against other object with subsequent fall, initial encounter
CPT/HCPCS: 73080; 99283

== ENCOUNTER 2017-07-30 21:10 | Emergency (ER) | payer BC ==
[~2017-07-30 21:10] MED LIST changes: -BENZ100 PO; -PRED20 PO
[2017-07-30 21:16] VITALS: BP 133/64; PULSE 78; RESP 18; TEMP 97.8; O2SAT 99
[2017-07-30] MEDS ORDERED: OMEP20TA93 PO (21:42)
[2017-07-30] MEDS ORDERED: IBUP-232 PO (21:57)
[2017-07-30] MEDS ORDERED: IBUPROFEN 600 MG TAB PO ONE (22:00)
--- NOTE | 2017-07-30 22:13 | PD ---
HPI Chief Complaint: Injury Time Seen by Provider: 21:21 Travel History International Travel<30 days: No Contact w/Intl Traveler<30days: No Traveled to known affect area: No History of Present Illness HPI 37-year-old male complains of pain in the right shoulder after sustaining an injury playing a Frisbee game yesterday. He woke up with pain even worse than it was when he went to bed. He has difficulty elevating the arm over the head. No numbness tingling or weakness. No head trauma. Onset sudden. Timing constant. Severity moderate. PFSH Past Medical History Medical History: Denies Significant Hx Heart Rhythm Problems: No Cardiac Catheterization: No Cardiovascular Problems: No Diabetes: No Diminished Hearing: No Immunizations Current: Yes Past Surgical History Coronary Artery Bypass Graft: No Other Surgery: Yes (BLADDER SURG) Social History Alcohol Use: Yes (SOMETIMES) Tobacco Use: No Substance Use: No (HX) Allergies-Medications (Allergen,Severity, Reaction): Coded Allergies: amoxicillin (Unverified Allergy, Unknown, 07/30/17) penicillin G (Unverified Allergy, Unknown, 07/30/17) shellfish derived (Unverified Allergy, Unknown, 07/30/17) Reported Meds & Prescriptions Reported Meds & Active Scripts Active Ibuprofen 600 Mg Tab 600 Mg PO Q8HR PRN Reported Omeprazole 20 Mg Tab 20 Mg PO DAILY Review of Systems General / Constitutional: No: Fever Eyes: No: Drainage HENT: No: Rhinitis Cardiovascular: No: Tachycardia Physical Exam Narrative GENERAL: 37-year-old male well-nourished well-developed Right upper extremity exam reveals an intact handgrip. Sensation is normal in the radial median and ulnar nerve distributions. Radial artery pulses 2+. Shoulder abduction beyond 90 is limited by pain actively and passively. Vital Signs Date Time Temp Pulse Resp B/P (MAP) Pulse Ox O2 Delivery O2 Flow Rate FiO2 07/30/17 21:16 97.8 78 18 133/64 (87) 99 SKIN: Warm and dry. HEAD: Atraumatic. Normocephalic. EYES: Pupils equal and round. No scleral icterus. No injection or drainage. GASTROINTESTINAL: Abdomen soft, non-tender, nondistended. Hepatic and splenic margins not palpable. MUSCULOSKELETAL: Extremities without clubbing, cyanosis, or edema. No obvious deformities. NEUROLOGICAL: Awake and alert. No obvious cranial nerve deficits. Motor grossly within normal limits. Five out of 5 muscle strength in the arms and legs. Normal speech. PSYCHIATRIC: Appropriate mood and affect; insight and judgment normal. Data Data Last Documented VS Vital Signs Date Time Temp Pulse Resp B/P (MAP) Pulse Ox O2 Delivery O2 Flow Rate FiO2 07/30/17 22:56 80 20 07/30/17 21:16 97.8 133/64 (87) 99 Orders Orders Shoulder, Complete (>2vws) (07/30/17 ) ^ Sling (07/30/17 21:48) Ibuprofen (Motrin) (07/30/17 22:00) Ed Discharge Order (07/30/17 22:41) Acetamin-Hydrocod 325-5 Mg ([place] 5-325 (07/30/17 23:00) MDM Medical Decision Making Medical Screen Exam Complete: Yes Emergency Medical Condition: Yes Medical Record Reviewed: Yes Differential Diagnosis Dislocation, fracture, musculoligamentous injury Narrative Course X-ray is unremarkable The patient will go home with a sling. It should be noted that his and he essentially demanded a work note stating that he was clear work in an unrestricted fashion. In order to allow this gentleman to continue working I am happy to write such a note. It should be noted however that we agreed with the patient's as a witness at 9:45 PM that the patient cannot elevate his hands over his head for at least 2 weeks. 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 Overall the more important thing for this patient is to be able to continue working and to let his shoulder recover completely. I would hate for him to miss payments on his housing or car and lose the ability to provide for himself or his family and as such I am willing to write a note saying he is able to work unrestricted. Again , he and I agreed along with his significant other present that he would not experience a full recovery without resting the right upper extremity. The patient and his were both informed that the chart would be documented as it is and they were agreeable with it. Diagnosis Primary Impression: Right shoulder injury Qualified Codes: S49.91XA - Unspecified injury of right shoulder and upper arm , initial encounter Med/Other Pt SpecificInfo: Prescription(s) given Scripts Ibuprofen (Ibuprofen) 600 Mg Tab 600 MG PO Q8HR Y for PAIN, #20 TAB 0 Refills Prov: Chandrakant Álvarez MD 07/30/17 Disposition: 01 DISCHARGE HOME Condition: Stable Chandrakant Álvarez MD July 30, 2017 22:13
--- NOTE | 2017-07-30 22:21 | RADRPT ---
EXAM DATE/TIME: 07/30/2017 22:11 [facility] COMPARISON: SHOULDER RIGHT COMPLETE (>2VWS), June 05, 2016, 21:47. INDICATIONS : Right shoulder pain, fall. MEDICAL HISTORY : None. SURGICAL HISTORY : None. ENCOUNTER: Initial ACUITY: 1 day PAIN SCORE: 8/10 LOCATION: Right proximal shoulder FINDINGS: Multiple view examination of the right shoulder demonstrates no evidence of fracture or dislocation. The glenohumeral and acromioclavicular joints are maintained. There is normal range of motion betwe en internal and external rotation. Bony mineralization is normal. CONCLUSION: No acute fracture. Dave Nugent MD on July 30, 2017 at 22:18 Board Certified Radiologist. This report was verified electronically.
[2017-07-30] MEDS ORDERED: ACETAMINOPHEN/HYDROcodone 325 MG/5 MG TAB PO ONE (23:00)
== END 2017-07-30 22:57 | disposition home or self-care (01) ==
LOC: NEPD 21:10
DX: S49.91XA Unspecified injury of right shoulder and upper arm, initial encounter (principal); Z88.0 Allergy status to penicillin; X58.XXXA Exposure to other specified factors, initial encounter; Y93.74 Activity, frisbee
CPT/HCPCS: 73030; 99283